=== PATIENT | female | born 1960 | race Caucasian/White ===

== ENCOUNTER 2021-05-08 14:59 | Inpatient (IN) | payer OTHER ==
[~2021-05-08] VITALS: Ht 157.5 cm; Wt 133.0 kg
[2021-05-08 16:06] LABS: BASOPHIL 0.1 % (0-2); EOSINOPHIL 0 % (0-5); HCT 47.8 % (37.0-47.0); HGB 14.9 g/dl (12.5-16.0); LYMPHOCYTE 16.8 % (15-48); MCH 27.3 pg (25.0-31.0); MCHC 31.2 g/dL (32.0-36.0); MCV 87.5 fL (78.0-100.0); MONOCYTE 9.7 % (0-12); MPV 9.4 fL (6.0-9.5); NEUTROPHIL 72.8 % (41-80); NRBC 0.2; PLT 256 K/uL (150-400); RBC 5.46 M/uL (4.20-5.40); RDW 15.8 % (11.5-14.0); WBC 8.4 K/uL (4.0-10.5)
[2021-05-08 16:41] LABS: BUN/CREAT RATIO (CALC) 21.1 RATIO; CREATININE 1.28 mg/dL (0.51-0.95); POTASSIUM 4.7 mmol/L (3.5-5.1)
[2021-05-08 16:59] LABS: CORONAVIRUS 2019 SARS-COV-2 POSITIVE (NEGATIVE); INFLUENZA A NAA NEGATIVE (NEGATIVE)
[2021-05-08] MEDS ORDERED: ASPIRIN EC81 MG PO (20:19)
[2021-05-08] MEDS ORDERED: ALL DAY ALLERGY10 M2 PO (20:26)
[2021-05-08] MEDS ORDERED: DICLOFENAC SODI75 MG PO (20:32)
[2021-05-08] MEDS ORDERED: CARDIZEM CD240 MG PO (20:34)
[2021-05-08] MEDS ORDERED: CARDIZEM CD120 MG PO (20:36)
[2021-05-08] MEDS ORDERED: AMARYL2 MG PO (20:39)
[2021-05-08] MEDS ORDERED: ISOSORBIDE MONO60 MG PO (20:41)
[2021-05-08] MEDS ORDERED: COZAAR100 MG PO (20:41)
[2021-05-08] MEDS ORDERED: OMEPRAZOLE 20MG20 MG PO (20:58)
[2021-05-08] MEDS ORDERED: MAGNESIUM PO (20:58)
[2021-05-08] MEDS ORDERED: ALDACTONE25 MG PO (20:59)
[2021-05-08] MEDS ORDERED: LASIX40 MG PO (21:01)
[2021-05-08] MEDS ORDERED: NITROQUIK SL0.4 MG SL ×2 (21:02→21:03)
[2021-05-09 05:54] LABS: BASOPHIL 0.2 % (0-2); EOSINOPHIL 0 % (0-5); HCT 49.8 % (37.0-47.0); HGB 15.2 g/dl (12.5-16.0); LYMPHOCYTE 11.4 % (15-48); MCH 27.1 pg (25.0-31.0); MCHC 30.5 g/dL (32.0-36.0); MCV 88.9 fL (78.0-100.0); MONOCYTE 7.7 % (0-12); NEUTROPHIL 79.9 % (41-80); NRBC 0.3; PLT 262 K/uL (150-400); RDW 15.6 % (11.5-14.0); WBC 6.2 K/uL (4.0-10.5)
[2021-05-09 06:08] LABS: INR 1.15 (0.9-1.2); PROTHROMBIN TIME 14.1 SECONDS (11.8-13.4)
[2021-05-09 06:20] LABS: ALBUMIN 2.6 g/dL (3.4-5.0); ALKALINE PHOSHATASE 121 U/L (46-116); ALT 32 U/L (14-59); AST 17 U/L (15-37); BILIRUBIN - TOTAL 0.5 mg/dL (0.2-1.0); BUN 21 mg/dL (7-18); BUN/CREAT RATIO (CALC) 20.8 RATIO; C-REACTIVE PROTEIN >18.00 mg/dL (<=0.90); CHLORIDE 103 mmol/L (98-107); CO2 (BICARBONATE) 31 mmol/L (21-32); CREATININE 1.01 mg/dL (0.51-0.95); GLOBULIN (CALCULATION) 4.6 g/dL; GLUCOSE 184 mg/dL (74-106); LDH 272 U/L (81-234); POTASSIUM 4.9 mmol/L (3.5-5.1); TOTAL PROTEIN 7.2 g/dL (6.4-8.2)
--- NOTE | 2021-05-09 17:40 | NUR ---
05/09/21 Ms. Campos lives at home with her spouse. She reports that her spouse has advanced cancer. Ms. Campos does not have any home DME. She chose [facility] for 02 if needed at discharge.
[2021-05-10 05:55] LABS: BASOPHIL 0.2 % (0-2); EOSINOPHIL 0 % (0-5); HCT 51.5 % (37.0-47.0); HGB 15.3 g/dl (12.5-16.0); LYMPHOCYTE 12.1 % (15-48); MCH 27.1 pg (25.0-31.0); MCHC 29.7 g/dL (32.0-36.0); MCV 91.2 fL (78.0-100.0); MPV 9.5 fL (6.0-9.5); NEUTROPHIL 81.1 % (41-80); NRBC 0.5; PLT 311 K/uL (150-400); RBC 5.65 M/uL (4.20-5.40); RDW 15.9 % (11.5-14.0); WBC 6.2 K/uL (4.0-10.5)
[2021-05-10 06:51] LABS: CREATININE 1.01 mg/dL (0.51-0.95); POTASSIUM 5.8 mmol/L (3.5-5.1)
[2021-05-10 14:25] LABS: BUN/CREAT RATIO (CALC) 27.4 RATIO; CREATININE 1.06 mg/dL (0.51-0.95); POTASSIUM 5.1 mmol/L (3.5-5.1)
[2021-05-11 06:27] LABS: BASOPHIL 0 % (0-2); EOSINOPHIL 0 % (0-5); HCT 53.6 % (37.0-47.0); HGB 16.2 g/dl (12.5-16.0); LYMPHOCYTE 11.9 % (15-48); MCHC 30.2 g/dL (32.0-36.0); MCV 89.5 fL (78.0-100.0); MONOCYTE 6.1 % (0-12); MPV 9.5 fL (6.0-9.5); NEUTROPHIL 81.3 % (41-80); NRBC 0.3; PLT 370 K/uL (150-400); RBC 5.99 M/uL (4.20-5.40); RDW 16.4 % (11.5-14.0); WBC 7.1 K/uL (4.0-10.5)
[2021-05-11 08:15] LABS: BUN/CREAT RATIO (CALC) 31.4 RATIO; CREATININE 1.02 mg/dL (0.51-0.95)
[2021-05-12 06:26] LABS: BASOPHIL 0.2 % (0-2); EOSINOPHIL 0 % (0-5); HCT 54.4 % (37.0-47.0); HGB 16.9 g/dl (12.5-16.0); LYMPHOCYTE 7.7 % (15-48); MCH 27.2 pg (25.0-31.0); MCHC 31.1 g/dL (32.0-36.0); MCV 87.6 fL (78.0-100.0); MONOCYTE 4.9 % (0-12); MPV 9.3 fL (6.0-9.5); NEUTROPHIL 86.3 % (41-80); NRBC 0.2; PLT 408 K/uL (150-400); RBC 6.21 M/uL (4.20-5.40); RDW 16.4 % (11.5-14.0); WBC 9.2 K/uL (4.0-10.5)
[2021-05-12 06:31] LABS: BUN/CREAT RATIO (CALC) 36.7 RATIO; CREATININE 0.9 mg/dL (0.51-0.95); POTASSIUM 4.9 mmol/L (3.5-5.1)
[2021-05-13 05:38] LABS: BASOPHIL 0 % (0-2); EOSINOPHIL 0 % (0-5); HCT 50.6 % (37.0-47.0); LYMPHOCYTE 5.3 % (15-48); MCH 27.4 pg (25.0-31.0); MCHC 31.6 g/dL (32.0-36.0); MCV 86.5 fL (78.0-100.0); MONOCYTE 6.1 % (0-12); MPV 9.3 fL (6.0-9.5); NEUTROPHIL 87.2 % (41-80); NRBC 0; PLT 385 K/uL (150-400); RBC 5.85 M/uL (4.20-5.40); RDW 15.5 % (11.5-14.0); WBC 8.7 K/uL (4.0-10.5)
[2021-05-13 05:57] LABS: BUN/CREAT RATIO (CALC) 36.1 RATIO; CREATININE 0.83 mg/dL (0.51-0.95); POTASSIUM 4.9 mmol/L (3.5-5.1)
[2021-05-14 11:24] LABS: BASOPHIL 0.1 % (0-2); EOSINOPHIL 0 % (0-5); HGB 16.1 g/dl (12.5-16.0); LYMPHOCYTE 3.7 % (15-48); MCH 27.3 pg (25.0-31.0); MCV 88.3 fL (78.0-100.0); MONOCYTE 6.5 % (0-12); MPV 9.9 fL (6.0-9.5); NEUTROPHIL 88.9 % (41-80); NRBC 0; PLT 395 K/uL (150-400); RBC 5.89 M/uL (4.20-5.40); RDW 15.8 % (11.5-14.0); WBC 9.6 K/uL (4.0-10.5)
[2021-05-14 11:41] LABS: BUN/CREAT RATIO (CALC) 38.4 RATIO; CREATININE 0.86 mg/dL (0.51-0.95); FT4 (FREE T4) 1.6 ng/dL (0.76-1.46); POTASSIUM 5.2 mmol/L (3.5-5.1)
[2021-05-14 15:17] LABS: BILIRUBIN NEGATIVE (NEGATIVE); BLOOD 3+ Ery/uL (NEGATIVE); CLARITY CLEAR (CLEAR); COLOR YELLOW (YELLOW); GLUCOSE (U) 1+ mg/dL (NORMAL); LEUKOCYTES NEGATIVE Leu/uL (NEGATIVE); NITRITE NEGATIVE (NEGATIVE); PROTEIN TRACE (LOW) mg/dL (NEGATIVE); pH 6.5 (5.0-9.0)
[2021-05-14 15:39] LABS: BACTERIA 1+; URINARY RBC 20-50
[2021-05-15 06:23] LABS: BASOPHIL 0.1 % (0-2); EOSINOPHIL 0 % (0-5); HCT 52.4 % (37.0-47.0); HGB 16.6 g/dl (12.5-16.0); LYMPHOCYTE 4.6 % (15-48); MCH 27.4 pg (25.0-31.0); MCHC 31.7 g/dL (32.0-36.0); MCV 86.6 fL (78.0-100.0); MONOCYTE 10.8 % (0-12); MPV 9.3 fL (6.0-9.5); NEUTROPHIL 83.8 % (41-80); NRBC 0; PLT 380 K/uL (150-400); RBC 6.05 M/uL (4.20-5.40); RDW 15.3 % (11.5-14.0); WBC 10.4 K/uL (4.0-10.5)
[2021-05-15 06:42] LABS: BUN/CREAT RATIO (CALC) 38.6 RATIO; CREATININE 0.88 mg/dL (0.51-0.95); POTASSIUM 4.9 mmol/L (3.5-5.1)
--- NOTE | 2021-05-16 13:07 | NUR ---
05/16/21 02 has been ordered from [facility] at 6 L oximizer. Report given to MS MARK Carias.
[2021-05-16 16:08] LABS: THYROGLOBULIN ANTIBODY <1.0 IU/mL (0.0-0.9); THYROID PEROXIDASE (TPO) AB <8 IU/mL (0-34)
== END 2021-05-16 15:20 | disposition home or self-care (01) | DRG 177 ==
LOC: FER 14:59 → FTCU 17:20 → FMS 05-15 07:31
PROVIDERS: Family Medicine; Internal Medicine; Nurse Practitioner; ADMIT Internal Medicine
PROC: XW033E5 Introduction of Remdesivir Anti-infective into Peripheral Vein, Percutaneous Approach, New Technology Group 5 (ICD-10-PCS; principal; 2021-05-08)
PROC: 3E0333Z Introduction of Anti-inflammatory into Peripheral Vein, Percutaneous Approach (ICD-10-PCS; 2021-05-08)
PROC: 8E0ZXY6 Isolation (ICD-10-PCS; 2021-05-08)
PROC: XW0DXM6 Introduction of Baricitinib into Mouth and Pharynx, External Approach, New Technology Group 6 (ICD-10-PCS; 2021-05-10)
DX: U07.1 COVID-19 (principal); J12.82 Pneumonia due to coronavirus disease 2019; J96.01 Acute respiratory failure with hypoxia; J15.9 Unspecified bacterial pneumonia; N17.9 Acute kidney failure, unspecified; Z68.43 Body mass index [BMI] 50.0-59.9, adult; E11.65 Type 2 diabetes mellitus with hyperglycemia; E87.5 Hyperkalemia; I48.91 Unspecified atrial fibrillation; M19.90 Unspecified osteoarthritis, unspecified site; I12.9 Hypertensive chronic kidney disease with stage 1 through stage 4 chronic kidney disease, or unspecified chronic kidney disease; E11.22 Type 2 diabetes mellitus with diabetic chronic kidney disease; N18.2 Chronic kidney disease, stage 2 (mild); E66.9 Obesity, unspecified; T38.0X5A Adverse effect of glucocorticoids and synthetic analogues, initial encounter; R31.9 Hematuria, unspecified; Z88.0 Allergy status to penicillin; Z88.2 Allergy status to sulfonamides; Z88.1 Allergy status to other antibiotic agents; Z79.82 Long term (current) use of aspirin; Z79.84 Long term (current) use of oral hypoglycemic drugs; Z79.899 Other long term (current) drug therapy; I25.2 Old myocardial infarction; Z87.891 Personal history of nicotine dependence
CPT/HCPCS: 36415; 36600; 71045; 76536; 80048; 80053; 81001; 82803; 82962; 83036; 83615; 84145; 84432; 84439; 84443; 84481; 84484; 85025; 85610; 86140; 86376; 93005; 94640; 94664; C9399; J1100; J1650; J1815; J1956; J7050; J8540; U0002